=== PATIENT | female | born 1985 | race Two or more races ===

== ENCOUNTER 2021-01-26 13:42 | Outpatient (CLI) | payer OTHER ==
[~2021-01-26] VITALS: Ht 160 cm; Wt 135.6 kg
[2021-01-26 14:07] VITALS: BP 135/81
--- NOTE | 2021-01-26 17:44 | Consultation ---
DATE OF CONSULTATION: 01/26/2021 CHIEF COMPLAINT: Referral for abdominal pain, GERD, constipation, nausea, bloating. HISTORY OF PRESENT ILLNESS: This is a 35-year-old female diagnosed with diabetes. The patient is 5 feet and 3 inches and weighed 299 pounds. She has been complaining of mainly nausea, not able to keep food down and keeps vomiting. Apparently, she had a CT of the abdomen and pelvis done in November in the emergency room showed fatty liver and hiatal hernia. The patient currently on p.r.n. omeprazole, also complaining of some heartburn. PAST MEDICAL HISTORY: 1. Diabetes. 2. Hypertension. 3. Depression. 4. GERD. 5. Lactose intolerance. PAST SURGICAL HISTORY: Cholecystectomy. MEDICATIONS: Please see medication reconciliation list. FAMILY HISTORY: Noncontributory. SOCIAL HISTORY: The patient denies any tobacco, alcohol, or drug abuse. ALLERGIES: No known drug allergies. PHYSICAL EXAMINATION: VITAL SIGNS: Temperature 96.1, blood pressure 135/81, pulse 78, respirations 20. HEENT: Normocephalic and atraumatic. Sclerae anicteric. NECK: Supple. No evidence of obvious lymphadenopathy. CARDIOVASCULAR: Regular rate and rhythm. Plus S1, S2. LUNGS: Clear to auscultation bilaterally. ABDOMEN: Positive bowel sounds. Soft and nontender. No rebound. No guarding. No peritoneal sign. EXTREMITIES: No cyanosis, no clubbing, no edema. ASSESSMENT: This is a 35-year-old female with chronic GERD symptoms, also nausea and vomiting, possibly secondary to gastroparesis. History of fatty liver and hiatal hernia. PLAN: Omeprazole 40 mg p.o. daily, Reglan 5 t.i.d. trial for 2 to 3 weeks to see if it improved her symptoms. The patient was educated about side effects of the Reglan and was told to stop if she experience any of them. We also plan to do an endoscopy. Sergio Eller M.D. DR: Jaswinder JOB#: [id number] CC:
== END 2021-01-26 14:56 | disposition home or self-care (01) ==
LOC: PAN 13:42
DX: R10.9 Unspecified abdominal pain (principal); K21.9 Gastro-esophageal reflux disease without esophagitis; K59.00 Constipation, unspecified; R14.0 Abdominal distension (gaseous); E11.9 Type 2 diabetes mellitus without complications; I10 Essential (primary) hypertension; F32.9 Major depressive disorder, single episode, unspecified; R12 Heartburn; Z79.899 Other long term (current) drug therapy; Z90.49 Acquired absence of other specified parts of digestive tract; R11.2 Nausea with vomiting, unspecified
CPT/HCPCS: 99203